=== PATIENT | female | born 1945 | race Caucasian/White ===

== ENCOUNTER 2017-10-11 11:14 | Emergency (ER) | payer OTHER, MEDICARE ==
[~2017-10-11] VITALS: Ht 172.7 cm; Wt 63.6 kg
[~2017-10-11 11:14] MED LIST: ALLEGRA60 M1 PO; ASPIRIN E.C. 8181 MG PO; ATROVENT NASAL15 ML NS; CENTRUM SILVER1 TA2 PO; COZAAR25 MG PO; CRESTOR20 MG PO; DICYCLOMINE10 MG PO; FLONASE NASAL S16 GM NS; LORTAB 5/500 501 TAB PO; PREDNISONE20 MG PO; PROZAC20 MG PO; SYNTHROID0.025 MG PO; SYNTHROID0.112 MG PO; TENORMIN25 MG PO; TENORMIN50 MG PO
[2017-10-11 11:18] VITALS: TEMP 97.7
[2017-10-11] MEDS ORDERED: SYNTHROID0.112 MG/T PO (12:04)
[2017-10-11] MEDS ORDERED: ALLEGRA 180MG180 MG PO (12:06)
[2017-10-11] MEDS ORDERED: PROTONIX 40MG T40 MG PO (12:07)
[2017-10-11] MEDS ORDERED: FLONASE NASAL S16 GM NS (12:07)
[2017-10-11] MEDS ORDERED: PROZAC60 MG PO (12:08)
[2017-10-11] MEDS ORDERED: CRESTOR5 MG PO (12:08)
[2017-10-11] MEDS ORDERED: ASPIRIN E.C. 8181 MG PO (12:09)
[2017-10-11] MEDS ORDERED: MULTI VITAMINS1 TAB PO (12:10)
[2017-10-11] MEDS ORDERED: CALCIUM CARBON650 M2 PO (12:11)
[2017-10-11] MEDS ORDERED: TENORMIN 5050 MG/TAB PO (12:12)
[2017-10-11] MEDS ORDERED: VITAMIN D31000 I1 PO (12:12)
[2017-10-11] MEDS ORDERED: COZAAR 50MG50 MG/TAB PO (12:12)
[2017-10-11] MEDS ORDERED: APRESOLINE 25MG25 MG PO (12:13)
[2017-10-11] MEDS ORDERED: HCTZ12.5TAB PO (12:14)
[2017-10-11] MEDS ORDERED: NORCO 325 MG-51 TAB PO (13:33)
[2017-10-11 13:50] VITALS: BP 187/81; PULSE 58
== END 2017-10-11 13:50 | disposition home or self-care (01) ==
LOC: COL.ER 11:14
DX: S06.0X0A Concussion without loss of consciousness, initial encounter (principal); S16.1XXA Strain of muscle, fascia and tendon at neck level, initial encounter; S20.219A Contusion of unspecified front wall of thorax, initial encounter; S70.12XA Contusion of left thigh, initial encounter; S70.11XA Contusion of right thigh, initial encounter; S60.221A Contusion of right hand, initial encounter; I10 Essential (primary) hypertension; E78.00 Pure hypercholesterolemia, unspecified; Z79.82 Long term (current) use of aspirin; V49.40XA Driver injured in collision with unspecified motor vehicles in traffic accident, initial encounter; Y93.I9 Activity, other involving external motion

== ENCOUNTER → 2018-12-23 | Outpatient (CLI) | payer MEDICARE, OTHER ==
[~2018-12-23] MED LIST changes: +ALLEGRA 180MG180 MG PO; +APRESOLINE 25MG25 MG PO; +CALCIUM CARBON650 M2 PO; +COZAAR 50MG50 MG/TAB PO; +CRESTOR5 MG PO; +HCTZ12.5TAB PO; +MULTI VITAMINS1 TAB PO; +NORCO 325 MG-51 TAB PO; +PROTONIX 40MG T40 MG PO; +PROZAC60 MG PO; +SYNTHROID0.112 MG/T PO; +TENORMIN 5050 MG/TAB PO; +VITAMIN D31000 I1 PO
== END ==
LOC: COL.LAB 10:36
DX: J30.1 Allergic rhinitis due to pollen (principal)

== ENCOUNTER → 2019-08-04 | Outpatient (CLI) | payer MEDICARE | LOC: MC.RAD 16:28 | DX: Z12.31 Encounter for screening mammogram for malignant neoplasm of breast (principal) ==

== ENCOUNTER 2021-05-08 10:57 | Inpatient (IN) | payer MEDICARE, OTHER ==
[~2021-05-08] VITALS: Ht 172.7 cm; Wt 61.4 kg
[2021-05-08 12:17] LABS: BASO % 0.3 % (0.0-2.0); EOS # 0.1 (0.0-0.7); EOS % 0.9 % (0-4.0); GRAN # 7.3 (1.4-6.5); GRAN % 78.2 % (42.2-75.2); HEMATOCRIT 33.3 % (37.0-47.0); HEMOGLOBIN 11.3 g/dl (12.5-16.0); LYMPH # 1.1 (1.2-3.4); LYMPH % 11.3 % (20.0-51.0); MEAN CELL VOLUME 94 fl (80.0-100.0); MEAN CORPUSCULAR HEMOGLOBIN 32 pg (27.0-31.0); MEAN CORPUSCULAR HGB CONC 34 g/dl (33.0-37.0); MEAN PLATELET VOLUME 8.3 fl (7.4-10.4); MONO # 0.8 (0.1-0.6); MONO % 8.8 % (1.7-9.3); PLATELET COUNT 272 K/mm3 (130-400); RED BLOOD COUNT 3.56 M/mm3 (4.10-5.30); REDCELL DISTRIBUTION WIDTH-CV 13.2 % (11.5-14.5)
[2021-05-08 12:27] LABS: INR 1.3 (0.8-3.0)
[2021-05-08 13:05] LABS: ALBUMIN 3.8 gm/dL (3.5-5.0); BILIRUBIN,TOTAL 0.5 mg/dL (0.0-1.0); CALCIUM 8.3 mg/dL (8.4-10.2); CREATININE, serum 0.82 (0.52-1.25); TOTAL PROTEIN 6.8 gm/dL (6.4-8.2)
--- NOTE | 2021-05-08 16:00 | NUR ---
Patient to room 327 by cart from the ED, nursing staffx3 using slide board transfered the patient to the bed. Patient reporting pain in right leg. Daughter at the bedside with the patient. Nurse oriented the patient to location, room and call light. A&Ox4. VSS. IV CDI. Right leg external rotation, patient does not want the right leg touched. Patient positioned for comfort. Mauro inserted. Pericare provided before and after insertion. 10ml water in balloon. 70ml clear yellow urine output. Patient NPO, waiting on doctors orders. Call light within reach
[2021-05-08 16:39] LABS: COLLECTION METHOD CATHETER
[2021-05-08 16:41] VITALS: BP 166/51; PULSE 59; TEMP 97.9
[2021-05-08 16:44] LABS: MUCOUS Present /lpf; PH 7 (5-8); SQUAMOUS EPITHELIAL 0-2 /hpf; URINE APPEARANCE Clear; URINE BACTERIA None Seen /hpf; URINE BILIRUBIN Negative (NEGATIVE); URINE BLOOD Negative (NEGATIVE); URINE COLOR Yellow; URINE GLUCOSE Negative (NEGATIVE); URINE KETONE Negative (NEGATIVE); URINE LEUKOCYTE ESTERASE Negative (NEGATIVE); URINE NITRATE Negative (NEGATIVE); URINE PROTEIN(semi-quant) 1+ (NEGATIVE); URINE RBC 20-50 /hpf; URINE UROBILINOGEN Negative (NEGATIVE)
--- NOTE | 2021-05-08 17:36 | NUR ---
Patient laying in bed, right leg externally rotated. Daughter at the bedside. Patient is A&Ox4. VSS. IV CDI. Mauro dependent drainage, clear yellow. Patient positioned for comfort. Daughter has concerns for the patients pain control. Nurse informed the patient, that the nurse spoke to Dr Jett about pain medication and orders were put in. Call light within reach.
[2021-05-08 19:05] VITALS: BP 135/41; PULSE 57; TEMP 97.7
[2021-05-08] MEDS ORDERED: BENADRYL25 M2 PO (20:12)
[2021-05-08] MEDS ORDERED: APRESOLINE 25MG25 MG PO (20:18)
[2021-05-08 20:34] VITALS: BP 140/66; PULSE 61
--- NOTE | 2021-05-08 21:57 | NUR ---
Pt is resting after pain med was given. Pain rated 8/10. Daughter was concern about meds dosage. Alejandra was and we got that situated. Will continue to monitor.
[2021-05-08 23:34] VITALS: BP 155/48; PULSE 58; TEMP 98.2
[2021-05-09] VITALS (12 sets, daily range): BP systolic 95–160; BP diastolic 38–58; PULSE 56–690; TEMP 97.6–98.9
[2021-05-09 07:24] LABS: BASO % 0.3 % (0.0-2.0); EOS % 0.4 % (0-4.0); GRAN # 5.4 (1.4-6.5); HEMOGLOBIN 10.9 g/dl (12.5-16.0); LYMPH % 13.5 % (20.0-51.0); MEAN CELL VOLUME 98 fl (80.0-100.0); MEAN CORPUSCULAR HEMOGLOBIN 32 pg (27.0-31.0); MEAN CORPUSCULAR HGB CONC 33 g/dl (33.0-37.0); MONO # 0.9 (0.1-0.6); MONO % 12.4 % (1.7-9.3); PLATELET COUNT 281 K/mm3 (130-400); RED BLOOD COUNT 3.39 M/mm3 (4.10-5.30); REDCELL DISTRIBUTION WIDTH-CV 13.4 % (11.5-14.5)
[2021-05-09 07:25] LABS: HEMATOCRIT 33.3 % (37.0-47.0)
[2021-05-09 07:27] LABS: CALCIUM 8.5 mg/dL (8.4-10.2); CREATININE, serum 1.3 (0.52-1.25); POTASSIUM 4.2 mmol/L (3.4-5.0)
--- NOTE | 2021-05-09 08:00 | NUR ---
Patient laying in bed, drowsy, but A&Ox4. VSS. IV CDI. Reports pain 8/10 right hip. Pain medication given as requested. Right leg externally rotated. CMS WNL. Mauro dependent drainage, clear yellow. Patient NPO fpr procedure. No further needs expressed from the patient. Call light within reach
--- NOTE | 2021-05-09 12:29 | NUR ---
bottle line worker met with patient to discuss discharge plan. Daughter (Neva) present in room. Patient reports she lives at home along in [place]. Patient reports that before this she was independent on all ADL's and did not use any medical equipment to assist with mobility. Patient's PCP is Dr. Alicia and uses [facility] for a pharmacy. Patient does not have a DPOA-HC establish, however verbalized it was her daughter Neva ([phone]). bottle line worker talked about the need for rehab after the procedure. Both the patient and daughter agree that [facility] would [facility] their first choice with the understanding of meeting 3 hours a day of PT. Daughter verbalized that if she cannot thrive within [facility] then [facility] would be the second choice. Patient was in agreement. bottle line worker verbalized referral to Denise with [facility]. bottle line worker contacted Shaun at [facility] with second choice referral. *Discharge plan: [facility] vs. SNF*
--- NOTE | 2021-05-09 13:09 | NUR ---
Initial visit: Initial visit; Patient thanked National Account Director for stopping and keeping her in National Account Director's prayers.
[2021-05-10] VITALS (12 sets, daily range): BP systolic 98–128; BP diastolic 27–70; PULSE 67–90; TEMP 87.3–98.3
--- NOTE | 2021-05-10 00:31 | NUR ---
Patient came up from surgery t the beginning of the shift. She look pale and cold. She is shivering. RN provided warm blanket. She denies pain at surgical site but she said she feels weird. Daughter is at the bedside. BP is low at 100's systolic and 40's diastolic. She has IV fluids at 125ml/hr. Patient complains of feeling numb in her right hip and foot. She have a good pulse in that site. Cong Quinteros notified for RN worried about compartment syndrome. Patient had spinal anesthesia. Explain the pt that we will continue to monitor for she just got that surgery done and numbness is expected in the incision site. Patient VS are stable other than the BP is low. After midnight pt said that she feels the sensation mildly. She had bowel movement 2x. SCD is in placed. Call light is within reach. Will continue to monitor.
--- NOTE | 2021-05-10 03:16 | NUR ---
Patient this morning has a little bit of confusion. She is saying something that is off. She wanted her daughter to be called and be at here side. She get so upset because she said that she is been calling but no one is coming into her room. She gets mad when the Charged Nurse told her that her daughter cannot come until 0700 this morning. Crystal was in the room couple of times for she on VS monitoring and she had bowel movement 2x. She used the bedpan and she did it well. Bed alarm is on and call light is within reach and will continue to monitor.
[2021-05-10 06:30] LABS: BASO % 0.1 % (0.0-2.0); GRAN # 6.7 (1.4-6.5); GRAN % 79.9 % (42.2-75.2); LYMPH # 0.7 (1.2-3.4); LYMPH % 8.2 % (20.0-51.0); MEAN CELL VOLUME 99 fl (80.0-100.0); MEAN CORPUSCULAR HGB CONC 33 g/dl (33.0-37.0); MEAN PLATELET VOLUME 9.4 fl (7.4-10.4); MONO # 0.9 (0.1-0.6); MONO % 11.3 % (1.7-9.3); PLATELET COUNT 194 K/mm3 (130-400); REDCELL DISTRIBUTION WIDTH-CV 13.4 % (11.5-14.5)
[2021-05-10 06:42] LABS: CALCIUM 7.5 mg/dL (8.4-10.2); CREATININE, serum 1.51 (0.52-1.25); MAGNESIUM 1.7 mg/dL (1.6-2.3)
[2021-05-10 07:16] LABS: HEMATOCRIT 21.7 % (37.0-47.0); HEMOGLOBIN 7.1 g/dl (12.5-16.0); MEAN CORPUSCULAR HEMOGLOBIN 32 pg (27.0-31.0)
[2021-05-10 14:38] LABS: HEMATOCRIT 20.8 % (37.0-47.0); HEMOGLOBIN 6.8 g/dl (12.5-16.0)
--- NOTE | 2021-05-10 15:54 | NUR ---
housekeeper/custodian/laundry worker met with the patient to discuss [facility] not having a bed and that [facility] has accepted her. Patient's questions were answered. housekeeper/custodian/laundry worker faxed updates to Shaun and called daughter Neva to update. Patient wanted to establish DPOA-HC however was not established prior to surgery due to procedure time. Discussed this with Neva and advised for her to complete over the weekend. *Discharge Plan: [facility] [place] once ready to discharge*
--- NOTE | 2021-05-10 18:38 | NUR ---
Patient doing well throughout the day, pain medication given per orders for right hip pain. Prosper hose to BLE. Patient refusing SCDs at this time. Blood transfusion infusing per orders. Mauro maintained to DD with clear christiane urine. Denies further needs at this time. Will report off to shift mgr.
[2021-05-10 20:50] LABS: HEMATOCRIT 23.7 % (37.0-47.0); HEMOGLOBIN 7.8 g/dl (12.5-16.0)
--- NOTE | 2021-05-10 22:30 | NUR ---
Assessment completed, awake, oriented BP is still low. She is hooked up with blood tranfusion. Complains of pain in surgical site in her right hip. Tylenol given. Patient said that she feels better than this morning. No complains of SOB.Surgical site is clean and intact. TEDS is on in her right leg, TEDS provided in her left leg. Blood transfusion done at 1953. Hemoglobin draw came back 7.8. Alejandra notified and given her cardiac issues she gave ordered another unit of blood. RN discussed it to patient and verbalized understanding. ALL BP mds was hold for her BP is low. Call lights provided and within reach. Continue to monitor.
[2021-05-11] VITALS (10 sets, daily range): BP systolic 100–136; BP diastolic 40–58; PULSE 62–86; TEMP 97.4–98.9
[2021-05-11 06:57] LABS: MEAN CELL VOLUME 95 fl (80.0-100.0); MEAN CORPUSCULAR HGB CONC 34 g/dl (33.0-37.0); MEAN PLATELET VOLUME 9.1 fl (7.4-10.4); PLATELET COUNT 151 K/mm3 (130-400); RED BLOOD COUNT 2.74 M/mm3 (4.10-5.30); REDCELL DISTRIBUTION WIDTH-CV 14.1 % (11.5-14.5)
[2021-05-11 06:58] LABS: HEMATOCRIT 26.1 % (37.0-47.0); HEMOGLOBIN 8.8 g/dl (12.5-16.0); MEAN CORPUSCULAR HEMOGLOBIN 32 pg (27.0-31.0)
[2021-05-11 07:06] LABS: CALCIUM 7.2 mg/dL (8.4-10.2); CREATININE, serum 0.92 (0.52-1.25); POTASSIUM 3.6 mmol/L (3.4-5.0)
--- NOTE | 2021-05-11 08:00 | NUR ---
Patient sitting up in bed watching TV. A&Ox4. VSS. IV CDI, fluids infusing. Denies pain and discomfort. Right hip incision sites x3 CDI. Leg elevated on pillow. Mauro dependent drainage, intact. No further needs expressed. Call light within reach
[2021-05-11 10:59] LABS: CREATININE, serum 0.82 (0.52-1.25)
[2021-05-11 11:08] LABS: FRACTIONAL EXCRETION OF NA+ 0.4 %
--- NOTE | 2021-05-11 13:45 | NUR ---
Nurse assisted patient onto the bedpan and also removed the mercado. Pericare before and after removal. 10ml removed from the balloon. Patient tolerated well. Nurse encouraged the patient to increase PO intake. Patient verbalized an understanding. Call light within reach
--- NOTE | 2021-05-11 14:16 | NUR ---
SW confirmed with staff member Shaun at [facility] that patient would transfer to facitilty up on [place], per physician tranfer will be tomorrow 05/11/2021. SARBJIT will continue to followl.
--- NOTE | 2021-05-11 15:26 | NUR ---
SW assisted patient with completing DPOA-HC documentation. Patient appointed Neva Pittman as primary agent and Trupti Marina as alt. Documentation reviewed, filled out by SW, signed by patient and witnessed by nurse. Original document placed in chart and copies provided to patient. SW will continue to follow, patient transfering to [facility] 05/12/2021.
--- NOTE | 2021-05-11 18:15 | NUR ---
Patient assisted off of the bedpan and voided tea colored urine, small amount. Nurse encouraging patient to increase PO intake of gatorade at the bedside. Patient has had no complaints of pain. Worked with PT in bed with ROM. Patient A&Ox4. VSS. IV CDI. No further needs expressed from the patient. Call light within reach
[2021-05-12 04:04] VITALS: BP 132/49; PULSE 69; TEMP 98
--- NOTE | 2021-05-12 05:35 | NUR ---
PT IN BED. NO N/V. OXYCODONE FOR RLE PAIN. DRESSINGS CD&I. ICE IN USE.
[2021-05-12 06:33] LABS: BASO % 0.3 % (0.0-2.0); EOS # 0.2 (0.0-0.7); EOS % 2.1 % (0-4.0); GRAN # 5.2 (1.4-6.5); GRAN % 73.9 % (42.2-75.2); LYMPH % 14.3 % (20.0-51.0); MEAN CELL VOLUME 95 fl (80.0-100.0); MEAN CORPUSCULAR HGB CONC 34 g/dl (33.0-37.0); MEAN PLATELET VOLUME 8.9 fl (7.4-10.4); MONO # 0.6 (0.1-0.6); MONO % 8.4 % (1.7-9.3); PLATELET COUNT 161 K/mm3 (130-400); REDCELL DISTRIBUTION WIDTH-CV 14.4 % (11.5-14.5)
[2021-05-12 06:39] LABS: HEMATOCRIT 25.6 % (37.0-47.0); HEMOGLOBIN 8.6 g/dl (12.5-16.0); MEAN CORPUSCULAR HEMOGLOBIN 32 pg (27.0-31.0)
[2021-05-12 06:50] LABS: CALCIUM 7.5 mg/dL (8.4-10.2); CREATININE, serum 0.67 (0.52-1.25); MAGNESIUM 1.7 mg/dL (1.6-2.3); POTASSIUM 3.9 mmol/L (3.4-5.0)
[2021-05-12 07:12] VITALS: BP 147/51; PULSE 69; TEMP 98.8
--- NOTE | 2021-05-12 08:00 | NUR ---
PT and the nursing secretary got the patient up to the BSC and then to the recliner with a 1x assist. Patient did not assist with transfering. Patient A&Ox4. VSS. IV CDI. Right hip incision site CDI. Patient to go to [facility] today. No further needs expressed. Call light within reach. Chair alarm on
--- NOTE | 2021-05-12 09:00 | NUR ---
utility aide informed this nurse that the patient took medication that was in her purse. The nurse went into the patients room and asked the patient about taking medication. The patient stated that she took a xanax and that she took 2 xanax at 2 seperate times 05/11. This nurse informed the patient to not take anymore home medications. Purse with the medication moved away from the patient and out of reach. Scheduled medications given to the patient. Will notify the doctor. Call light within reach. Chair alarm on
--- NOTE | 2021-05-12 10:27 | NUR ---
Nursing staff assisted the patient back to the bed with 2x assist, gait belt and walker. Nurse informed the patient that she is to go to [facility] for rehab, which SS spoke with the daughter and patient 05/11 and was agreed upon. Patient then stated to the nurse and the aide that if she was to fall, "it'll be on us" This was reported to the doctor. Patient repositioned in bed. Call light within reach. Bed alarm on
--- NOTE | 2021-05-12 10:30 | NUR ---
Xanax from the patients purse taken out of the patients room and sent to the pharmacy. Nurse notified the patients daughter and spoke to her over the phone. Daughter is coming in to visit the patient. Call light within reach
[2021-05-12 11:18] VITALS: BP 120/45; PULSE 68; TEMP 98.3
[2021-05-12] MEDS ORDERED: ASPI325T6 PO ×2 (14:37)
[2021-05-12] MEDS ORDERED: NORCO 325 MG-51 TAB PO ×2 (14:40)
--- NOTE | 2021-05-12 16:40 | NUR ---
Report called to [facility]. Daughter and granddaughter transported the patient to [facility] by private vehicle. Discharge paperwork and personal belongings with the patient. Patient assisted into the vehicle by nursing staff x2. No further needs expressed. Discharge packet with the patient.
[2021-05-13] MEDS ORDERED: NORCO 325 MG-51 TAB PO ×2 (09:11→10:33)
[2021-05-13] MEDS ORDERED: ASPIRIN 32325 MG/TAB PO (10:33)
== END 2021-05-12 16:40 | DRG 481 ==
LOC: COL.ER 10:57 → SURG 12:12
PROVIDERS: Emergency Medicine; Orthopaedic Surgery; Physician Assistant; ADMIT Internal Medicine
PROC: 0QS606Z Reposition Right Upper Femur with Intramedullary Internal Fixation Device, Open Approach (ICD-10-PCS; principal; 2021-05-09 12:30)
DX: S72.21XA Displaced subtrochanteric fracture of right femur, initial encounter for closed fracture (principal); E87.1 Hypo-osmolality and hyponatremia; N17.9 Acute kidney failure, unspecified; K90.41 Non-celiac gluten sensitivity; S72.041A Displaced fracture of base of neck of right femur, initial encounter for closed fracture; W01.0XXA Fall on same level from slipping, tripping and stumbling without subsequent striking against object, initial encounter; Y93.89 Activity, other specified; Y92.096 Garden or yard of other non-institutional residence as the place of occurrence of the external cause; D64.9 Anemia, unspecified; R55 Syncope and collapse; I25.10 Atherosclerotic heart disease of native coronary artery without angina pectoris; Z95.5 Presence of coronary angioplasty implant and graft; E78.5 Hyperlipidemia, unspecified; I10 Essential (primary) hypertension; F32.9 Major depressive disorder, single episode, unspecified; K21.9 Gastro-esophageal reflux disease without esophagitis; L43.9 Lichen planus, unspecified; J30.2 Other seasonal allergic rhinitis; T50.2X5A Adverse effect of carbonic-anhydrase inhibitors, benzothiadiazides and other diuretics, initial encounter; Z79.890 Hormone replacement therapy; E89.0 Postprocedural hypothyroidism; Z90.49 Acquired absence of other specified parts of digestive tract; Z79.82 Long term (current) use of aspirin; Z79.51 Long term (current) use of inhaled steroids
CPT/HCPCS: 99223-AI; 99232-AI; 99233-AI; 99239; A4314; A9284; C1713; J0690; J1170; J2250; J2270; J2704; J3010; J7030; P9016

== ENCOUNTER → 2021-05-27 | Outpatient (CLI) | payer MEDICARE, OTHER ==
[~2021-05-27] MED LIST changes: +ASPI325T6 PO; +ASPIRIN 32325 MG/TAB PO; +BENADRYL25 M2 PO
[2021-05-27 17:36] LABS: BASO % 0.4 % (0.0-2.0); EOS # 0.1 (0.0-0.7); EOS % 1.5 % (0-4.0); GRAN # 5.8 (1.4-6.5); GRAN % 72.6 % (42.2-75.2); LYMPH # 1.2 (1.2-3.4); MEAN CELL VOLUME 99 fl (80.0-100.0); MEAN CORPUSCULAR HEMOGLOBIN 31 pg (27.0-31.0); MEAN CORPUSCULAR HGB CONC 32 g/dl (33.0-37.0); MEAN PLATELET VOLUME 8.6 fl (7.4-10.4); MONO # 0.8 (0.1-0.6); MONO % 9.7 % (1.7-9.3); PLATELET COUNT 561 K/mm3 (130-400); RED BLOOD COUNT 3.19 M/mm3 (4.10-5.30)
[2021-05-27 17:37] LABS: HEMATOCRIT 31.5 % (37.0-47.0)
[2021-05-27 17:43] LABS: IRON,SERUM 43 ug/dL (35-150)
[2021-05-27 17:45] LABS: ALBUMIN 3.8 gm/dL (3.5-5.0); BILIRUBIN,TOTAL 0.5 mg/dL (0.0-1.0); CALCIUM 9.2 mg/dL (8.4-10.2); CREATININE, serum 0.97 (0.52-1.25); POTASSIUM 3.9 mmol/L (3.4-5.0); TOTAL PROTEIN 7.4 gm/dL (6.4-8.2)
[2021-05-27 17:52] LABS: TOTAL IRON BINDING CAPACITY 291 ug/dL (265-497)
== END ==
LOC: ZLAB.STJ 16:13
PROVIDERS: Family Medicine
DX: E87.1 Hypo-osmolality and hyponatremia (principal)

== ENCOUNTER → 2022-04-18 | Outpatient (CLI) | payer MEDICARE, OTHER | LOC: MC.RAD 13:05 | DX: Z12.31 Encounter for screening mammogram for malignant neoplasm of breast (principal) ==

== ENCOUNTER → 2023-11-20 | Outpatient (CLI) | payer MEDICARE, OTHER | LOC: MC.RAD 09:24 | DX: Z12.31 Encounter for screening mammogram for malignant neoplasm of breast (principal) ==